=== PATIENT | male | born 1995 | race Caucasian/White ===

== ENCOUNTER 2016-12-15 04:15 | Emergency (ER) | payer OTHER ==
[~2016-12-15] VITALS: Ht 188 cm; Wt 62.6 kg
[~2016-12-15 04:15] MED LIST: CEPH500C PO; HYDR-757 PO; LISD40CA3 PO
[2016-12-15] MEDS ORDERED: AMOXICILLIN 500 MG (POLYMOX) CAP PO ONE (04:30)
[2016-12-15] MEDS ORDERED: AMOX500C2 PO (04:31)
--- NOTE | 2016-12-15 04:31 | ED EENT ---
History of Present Illness General Chief Complaint: Ear Problems Stated Complaint: RT EAR PAIN,COUGHING Nursing Triage Note: c/o R ear pain and pressure after blowing his nose about 1930 on 12/14/2016. Source: patient Exam Limitations: no limitations History of Present Illness Time seen by provider: 04:19 Initial Comments This 21-year-old young man presents to the emergency room with complaints of right ear pain and pressure after blowing his nose that started around 19:00. There his been no drainage. He also reports he uses a small screwdriver to remove earwax and has done this for many years. Allergies and Home Medications Allergies Coded Allergies: No Known Drug Allergies (Unverified , 04/28/15) Home Medications Amoxicillin 500 Mg Capsule #60 1,000 MG PO TID Prescribed by: EMERALD NIXON on 12/15/16 0431 Cephalexin Monohydrate 500 Mg Capsule #21 1 EACH PO TID Prescribed by: ZANE GLEZ on 04/28/15 1228 Hydrocodone Bit/Acetaminophen 1 Each Tablet #10 1 EA PO Q6H PRN PRN SEVERE PAIN Prescribed by: ZANE GLEZ on 04/28/15 1228 Lisdexamfetamine Dimesylate 40 Mg Capsule 40 MG PO DAILY (Reported) Review of Systems Constitutional: no symptoms reported Eyes: No Symptoms Reported Ears: See HPI Nose: no symptoms reported Mouth: no symptoms reported Throat: no symptoms reported Respiratory: no symptoms reported Skin: no symptoms reported Past Oqqurbw-Fnibbj-Unkxhx Hx Patient Social History Alcohol Use: Occasionally Uses Recreational Drug Use: Yes Drug of Choice: thc Smoking Status: Current Everyday Smoker Type Used: Cigarettes Recent Foreign Travel: No Contact w/Someone Who Travel: No Recent Infectious Disease Expo: No Recent Hopitalizations: No Immunizations Up To Date Tetanus Booster (TDap): Less than 5yrs Seasonal Allergies Seasonal Allergies: No Surgeries HX Surgeries: No Respiratory Hx Respiratory Disorders: No Cardiovascular Hx Cardiac Disorders: Yes Cardiac Disorders: Syncope Neurological Hx Neurological Disorders: No Reproductive System Hx Reproductive Disorders: No Genitourinary Hx Genitourinary Disorders: No Gastrointestinal Hx Gastrointestinal Disorders: No Musculoskeletal Hx Musculoskeletal Disorders: No Endocrine Hx Endocrine Disorders: No HEENT HX ENT Disorders: No Cancer Hx Cancer: No Physical Exam Vital Signs Vital Sign - Last 12Hours 12/15/16 04:20 Temp 98.0 Pulse 99 Resp 18 B/P 126/83 Pulse Ox 100 General Appearance: WD/WN no apparent distress Eyes: right eye EOMI, right eye PERRL, right eye normal inspection Ears: right ear TM bulging, right ear TM dull, right ear TM red, left ear TM normal, bilateral ear auricle normal, bilateral ear canal normal Cardiovascular: regular rate, rhythm no edema no murmur Respiratory: lungs clear normal breath sounds no respiratory distress no accessory muscle use Neurologic/Psychiatric: supervisor testing II-XII nml as tested no motor/sensory deficits alert normal mood/affect oriented x 3 Skin: normal color warm/dry Progress/Results/Core Measures Results/Orders My Orders Orders-EMERALD MARKS MD Amoxicillin Capsule (Polymox Capsule) (12/15/16 04:30) Medications Given in ED Current Medications Medications Dose Ordered Sig/Namrata Route Start Time Stop Time Status Last Admin Dose Admin Amoxicillin 1,000 mg ONCE ONCE PO 12/15/16 04:30 12/15/16 04:31 DC 12/15/16 04:35 1,000 MG Vital Signs/I&O Vital Sign - Last 12Hours 12/15/16 12/15/16 04:20 04:36 Temp 98.0 98.0 Pulse 99 99 Resp 18 18 B/P 126/83 Pulse Ox 100 100 Blood Pressure Mean: 97 Progress Note : Progress Note Patient had a significant right-sided otitis media with TM bulging and erythema. He was given his first dose of amoxicillin in the emergency room. He was advised not to insert foreign objects into his ear as he has been doing with the screwdriver. Departure Impression Impression: Primary Impression: Right otitis media with effusion Disposition: 01 HOME, SELF-CARE Condition: Improved Departure-Patient Inst. Decision time for Depature: 04:25 Referrals: [facility] (PCP/Family) Primary Care Physician Patient Instructions: Ear Infections (Otitis Media) Scripts Amoxicillin 500 Mg Capsule1,000 Mg PO TID #60 CAP Prov:EMERALD MARKS MD 12/15/16 EMERALD MARKS MD Dec 15, 2016 04:31
[2016-12-15 04:36] VITALS: BP 126/83
--- OUTSIDE RECORDS SUMMARY | 2016-12-15 13:03 | XMS REPORT | Continuity of Care Document ---
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 Tobacco user (finding) Active Problem 09/22/2016 Added by Discern Expert based on Social History Documentation [facility]. 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 Attention deficit disorder of childhood without mention of hyperactivity 01/08/2015 Diagnosis 01/12/2015 [employer] [employer]. Attention deficit hyperactivity disorder, predominantly inattentive type ( disorder) 09/18/2016 Diagnosis 09/22/2016 [facility]. Medications Medication Details Route Status Patient Instructions Ordering Provider Order Date Source No Known Medications No known medications Active [employer] Allergies, Adverse Reactions, Alerts Substance Category Reaction Severity Reaction type Status Date Reported Comments Source NKA allergy to substance Allergy Active [facility] Immunizations Immunization Date Given Site Status Last Updated Comments Source No data available for this section No data available for this section [facility]. Results Order Name Results Value Reference Range Date Interpretation Comments Source Vital Signs Vital Sign Value Date Comments Source Encounters Location Location Details Encounter Type Encounter Number Reason For Visit Attending Provider ADM Date DC Date Status Source AN [id number] Clinic ( Outpatient) [id number] Shayan Taylor 09/18/2016 Active [facility] AN [id number] Clinic ( Outpatient) [id number] Shayan Taylor 05/29/2014 Active [facility] AN [id number] Clinic ( Outpatient) [id number] Shayan Taylor 03/18/2016 Active [facility] [id number] Clinic ( Outpatient) [id number] Shayan Taylor 08/07/2016 Active [facility] [id number] Clinic ( Outpatient) [id number] Shayan Taylor 10/12/2013 Active [facility] Care Cancel/ No Show [id number] Shayan Taylor 03/18/2016 03/18/2016 [facility]. [facility] [id number] Shayan Taylor 05/29/2014 05/30/2014 [facility]. [facility] [id number] [facility] 01/08/2015 01/09/2015 [facility]. [facility] [id number] Clinic ( Outpatient) [id number] Shayan Taylor 09/17/2015 Active [facility] [id number] Clinic ( Outpatient) [id number] [facility] 01/08/2015 Active [facility] [id number] Clinic ( Outpatient) [id number] [facility] 01/07/2015 Active [facility] [id number] Shayan Taylor 09/17/2015 09/18/2015 [facility]. [facility] [id number] Shayan Taylor 09/18/2016 09/19/2016 [facility]. Procedures Procedure Code Date Perfomer Comments Source No data available for this section [facility]. no surgery [facility]
== END 2016-12-15 04:36 | disposition home or self-care (01) ==
LOC: EDUNIT# 04:15 → ER 04:18
DX: H65.91 Unspecified nonsuppurative otitis media, right ear (principal); F17.210 Nicotine dependence, cigarettes, uncomplicated
CPT/HCPCS: 99282

== ENCOUNTER 2019-08-27 11:40 | Emergency (ER) | payer OTHER ==
[~2019-08-27] VITALS: Ht 182 cm; Wt 81.8 kg
[~2019-08-27 11:40] MED LIST changes: +ACHD5005 PO; +AMOX500C2 PO; +OMEP20TA7 PO; +ONDA4TAB11 PO
[2019-08-27] MEDS ORDERED: AMOX-358 PO ×2 (12:57→12:58)
--- NOTE | 2019-08-27 12:58 | ED Upper Extremity ---
General Chief Complaint: Laceration Stated Complaint: RT THUMB LACERATION Nursing Triage Note: Patient reports playing with his dog last night and getting bit, on his R thumb. Nursing Sepsis Screen: No Definite Risk Source: patient Exam Limitations: no limitations History of Present Illness Date Seen by Provider: Aug 27, 2019 Time Seen by Provider: 12:53 Initial Comments This 23-year-old white male presents he sustained dog bite to his right thumb while playing with his dog last night. Patient is complaining of laceration to the radial aspect of his distal legs and puncture wound to the ulnar aspect of his distal phalanx. He denies bony injury. He denies other injury. Patient is unclear when his last tetanus immunization occurred. Allergies and Home Medications Allergies Coded Allergies: No Known Drug Allergies (Unverified , 04/28/15) Home Medications Amoxicillin 500 Mg Capsule, 1,000 MG PO TID Prescribed by: EMERALD NIXON on 12/15/16 0431 Cephalexin Monohydrate 500 Mg Capsule, 1 EACH PO TID Prescribed by: ZANE GLEZ on 04/28/15 1228 Hydrocodone Bit/Acetaminophen 1 Each Tablet, 1 EA PO Q6H PRN for SEVERE PAIN Prescribed by: ZANE GLEZ on 04/28/15 1228 Hydrocodone Bit/Acetaminophen 1 Tab Tab, 1-2 EACH PO Q6H PRN for BREAKTHROUGH P AIN Prescribed by: GABBY JACKSON on 06/20/18 0549 Lisdexamfetamine Dimesylate 40 Mg Capsule, 40 MG PO DAILY, (Reported) Omeprazole 20 Mg Tablet.dr, 20 MG PO DAILY Prescribed by: GABBY JACKSON on 06/20/18 0549 Ondansetron 4 Mg Tab.rapdis, 4 MG PO Q6H PRN for NAUSEA/VOMITING Prescribed by: GABBY JACKSON on 06/20/18 0549 Patient Home Medication List Home Medication List Reviewed: Yes Review of Systems Constitutional: no symptoms reported EENTM: no symptoms reported Respiratory: no symptoms reported Cardiovascular: no symptoms reported Gastrointestinal: no symptoms reported Genitourinary: no symptoms reported Musculoskeletal: see HPI Skin: see HPI Psychiatric/Neurological: No Symptoms Reported Past Diznpng-Rydkum-Czggsk Hx Past Med/Social Hx: Reviewed Nursing Past Med/Soc Hx Patient Social History Alcohol Use: Denies Use Number of Drinks Today: AA Alcohol Beverage of Choice: Beer Recreational Drug Use: Yes Drug of Choice: thc Type Used: Cigarettes Recent Foreign Travel: No Contact w/Someone Who Travel: No Recent Infectious Disease Expo: No Recent Hopitalizations: No Physical Abuse: No Sexual Abuse: No Mistreated: No Immunizations Up To Date Tetanus Booster (TDap): Less than 5yrs Seasonal Allergies Seasonal Allergies: No Past Medical History Surgeries: No Respiratory: No Cardiac: Yes Syncope Neurological: No Reproductive Disorders: No Gastrointestinal: No Musculoskeletal: No Endocrine: No Cancer: No Psychosocial: No Blood Disorders: No Physical Exam Vital Signs Vital Signs - First Documented 08/27/19 12:41 Temp 36.8 Pulse 90 Resp 18 B/P (MAP) 110/67 (81) Pulse Ox 99 Capillary Refill : Less Than 3 Seconds Height, Weight, BMI Height: 6'2.00" Weight: 160lbs. oz. [id number]; 24.00 BMI Method:Stated General Appearance: WD/WN, no apparent distress HEENT: normal ENT inspection Neck: normal inspection Cardiovascular: regular rate, rhythm Respiratory: no respiratory distress Shoulder: normal inspection Elbow/Forearm: normal inspection Wrist: Yes normal inspection Hand: Right (there is a superficial one is laceration to the distal phalanx of the right thumb and an associated puncture wound to its opposite side.) Neurologic/Tendon: normal sensation, normal motor functions, normal tendon functions Neurologic/Psychiatric: no motor/sensory deficits, alert, normal mood/affect Skin: other (laceration right thumb as described above.) Progress/Results/Core Measures Results/Orders My Orders Orders - OJ DOYLE MD Dipht,Pertuss(Acell),Tet Adult (Boostrix (08/27/19 13:00) Vital Signs/I&O 08/27/19 12:41 Temp 36.8 Pulse 90 Resp 18 B/P (MAP) 110/67 (81) Pulse Ox 99 Blood Pressure Mean: 81 POS Progress Progress Note : Time: 12:55 Progress Note Treatment options were discussed with the patient. He declined an x-ray. He elected to not have the laceration sewn. Patient received a TDaP. Patient placed on Augmentin 875 twice a day for a week. He was advised use ibuprofen or Tylenol for pain. He was asked to soak the thumb in warm soapy water twice a day. He was asked return to emergency department for the problems or questions. Departure Impression Primary Impression: Dog bite of right thumb Qualified Codes: S61.051A - Open bite of right thumb without damage to nail, initial encounter; W54.0XXA - Bitten by dog, initial encounter Disposition: HOME, SELF-CARE Condition: Improved Departure-Patient Inst. Decision time for Depature: 12:56 Referrals: NO,LOCAL PHYSICIAN (PCP) Primary Care Physician Patient Instructions: Diphtheria and Tetanus Toxoids, and Acellular Pertussis Vaccine Add. Discharge Instructions: Clean the thumb with soap and water twice a day. Augmentin as prescribed. Return if any problems or questions. All discharge instructions reviewed with patient and/or family. Voiced understanding. Scripts Amoxicillin/Potassium Clav (Augmentin 875-125 Tablet) 1 Each Tablet 1 EACH PO BID for 7 Days, #14 TAB 0 Refills Prov: OJ DOYLE MD 08/27/19 Amoxicillin/Potassium Clav (Augmentin 875-125 Tablet) 1 Each Tablet 1 EACH PO BID for 7 Days, #14 TAB 0 Refills Prov: OJ DOYLE MD 08/27/19 OJ DOYLE MD Aug 27, 2019 12:58 POS
[2019-08-27] MEDS ORDERED: TETANUS,DIPTH,PERTUSS P/F (BOOSTRIX) 0.5 ML VIAL IM ONE (13:00)
[2019-08-27 13:31] VITALS: BP 110/67
== END 2019-08-27 13:30 | disposition home or self-care (01) ==
LOC: EDUNIT# 11:40 → ER 11:41
DX: S61.011A Laceration without foreign body of right thumb without damage to nail, initial encounter (principal); S61.031A Puncture wound without foreign body of right thumb without damage to nail, initial encounter; S61.051A Open bite of right thumb without damage to nail, initial encounter; Z23 Encounter for immunization; W54.0XXA Bitten by dog, initial encounter
CPT/HCPCS: 90715; 99284